=== PATIENT | male | born 1995 | race Caucasian/White ===

== ENCOUNTER → 2017-01-16 | Outpatient (CLI) | payer BC ==
--- NOTE | 2017-01-16 09:14 | Diagnostic Imaging Report ---
EXAM: CHEST PA/LAT (2 VIEW) INDICATION: SOB, L SIDED CHEST PAIN COMPARISON: Chest radiograph 10/08/2013. FINDINGS: Normal heart size and pulmonary vascularity. Lungs are well expanded. No focal pulmonary opacity, pleural effusion or pneumothorax. Osseous structures are unremarkable. No significant change. IMPRESSION: Negative chest. Dictated by: Dictated on workstation # [id number]
== END ==
LOC: RAD 08:19
PROVIDERS: ATTEND Family Medicine
DX: R06.02 Shortness of breath (principal); R07.9 Chest pain, unspecified
CPT/HCPCS: 71020

== ENCOUNTER → 2018-01-10 | Outpatient (CLI) | payer BC ==
[~2018-01-10] MED LIST: OMEP20CA12; SUCR1TAB
[2018-01-10 20:20] LABS: BASOPHILS % (AUTO) 1 % (0-10); EOSINOPHILS # (AUTO) 0.2 10^3/uL (0.0-0.3); EOSINOPHILS % (AUTO) 3 % (0-10); HEMATOCRIT 41 % (40-54); HEMOGLOBIN 15.3 G/DL (13.3-17.7); LYMPHOCYTES # (AUTO) 2.9 X 10^3 (1.0-4.0); LYMPHOCYTES % (AUTO) 44 % (12-44); MEAN CORPUSCULAR HEMOGLOBIN 33 PG (25-34); MEAN CORPUSCULAR HGB CONC 37 G/DL (32-36); MEAN CORPUSCULAR VOLUME 87 FL (80-99); MONOCYTES # (AUTO) 0.6 X 10^3 (0.0-1.0); MONOCYTES % (AUTO) 10 % (0-12); NEUTROPHILS # (AUTO) 2.8 X 10^3 (1.8-7.8); NEUTROPHILS % (AUTO) 43 % (42-75); PLATELET COUNT 236 10^3/uL (130-400); RED BLOOD COUNT 4.71 10^6/uL (4.35-5.85); RED CELL DISTRIBUTION WIDTH 12.3 % (10.0-14.5); WHITE BLOOD COUNT 6.5 10^3/uL (4.3-11.0)
[2018-01-10 20:37] LABS: ALANINE AMINOTRANSFERASE 18 U/L (0-55); ALBUMIN 4.4 GM/DL (3.2-4.5); ALKALINE PHOSPHATASE 53 U/L (40-136); AMYLASE 42 U/L (25-125); BUN/CREATININE RATIO 10; CALCIUM 9.5 MG/DL (8.5-10.1); CARBON DIOXIDE 29 MMOL/L (21-32); CHLORIDE 105 MMOL/L (98-107); CREATININE SERUM 1.02 MG/DL (0.60-1.30); GFR ESTIMATED > 60; GLUCOSE 97 MG/DL (70-105); LIPASE 12 U/L (8-78); POTASSIUM 3.8 MMOL/L (3.6-5.0); SODIUM 139 MMOL/L (135-145); TOTAL PROTEIN 6.4 GM/DL (6.4-8.2)
== END ==
LOC: LAB 20:00
PROVIDERS: ATTEND Nurse Practitioner Family
DX: R10.13 Epigastric pain (principal); R10.11 Right upper quadrant pain; R10.12 Left upper quadrant pain; R10.31 Right lower quadrant pain
CPT/HCPCS: 36415; 80053; 82150; 83690; 85025; 86141

== ENCOUNTER 2018-01-17 18:02 | Emergency (ER) | payer BC ==
[~2018-01-17] VITALS: Ht 175.3 cm; Wt 63.5 kg
[2018-01-17 18:45] LABS: BASOPHILS # (AUTO) 0.1 10^3/uL (0.0-0.1); BASOPHILS % (AUTO) 1 % (0-10); EOSINOPHILS # (AUTO) 0.1 10^3/uL (0.0-0.3); EOSINOPHILS % (AUTO) 2 % (0-10); HEMATOCRIT 42 % (40-54); HEMOGLOBIN 15.4 G/DL (13.3-17.7); LYMPHOCYTES # (AUTO) 1.9 X 10^3 (1.0-4.0); LYMPHOCYTES % (AUTO) 40 % (12-44); MEAN CORPUSCULAR HEMOGLOBIN 31 PG (25-34); MEAN CORPUSCULAR HGB CONC 37 G/DL (32-36); MEAN CORPUSCULAR VOLUME 85 FL (80-99); MEAN PLATELET VOLUME 10.1 FL (7.4-10.4); MONOCYTES # (AUTO) 0.6 X 10^3 (0.0-1.0); MONOCYTES % (AUTO) 12 % (0-12); NEUTROPHILS # (AUTO) 2.2 X 10^3 (1.8-7.8); NEUTROPHILS % (AUTO) 44 % (42-75); PLATELET COUNT 251 10^3/uL (130-400); RED BLOOD COUNT 4.95 10^6/uL (4.35-5.85); RED CELL DISTRIBUTION WIDTH 12.3 % (10.0-14.5); WHITE BLOOD COUNT 4.9 10^3/uL (4.3-11.0)
[2018-01-17] MEDS ORDERED: ONDANSETRON 4 MG/2 ML (SDV) Z0FRAN IVP ONE (18:45)
[2018-01-17] MEDS ORDERED: NS 100 ML (IVPB) BAG IV ONE (18:45)
[2018-01-17] MEDS ORDERED: IOHEXOL 350 MG/ML 100 ML (OMNIPAQUE 350) VIAL IV ONE (18:45)
[2018-01-17] MEDS ORDERED: NS IV 1000 ML 1,000 ML IV SCH (18:45)
--- NOTE | 2018-01-17 18:46 | ED Abdominal Pain ---
General Chief Complaint: Abdominal/GI Problems Stated Complaint: RLQ PAIN, CHILLS Source of Information: Patient Exam Limitations: No Limitations History of Present Illness Date Seen by Provider: Jan 17, 2018 Time Seen by Provider: 18:35 Initial Comments Patient is a 22-year-old male who presents to the emergency room with complaints of fevers, chills, nausea, right lower quadrant abdominal pain. He reports that his pain became worse throughout the day but has subsided a little now and this has a generalized ache in his abdomen. He reports that he's recently been treated for a stomach ulcer and is currently on Carafate and Pepcid. He reports this pain is different from the pain he has had in the past. Timing/Duration: 12 Hours Severity/Quality: Dull Location: RLQ Radiation: No Radiation Associated Symptoms: Fever/Chills, Nausea/Vomiting Allergies and Home Medications Allergies Coded Allergies: No Known Drug Allergies (Unverified , 01/17/18) Patient Home Medication List Home Medication List Reviewed: Yes Review of Systems Constitutional: see HPI, chills, fever Gastrointestinal: See HPI, Abdominal Pain, Constipated, Nausea; Denies Vomiting Genitourinary: No Symptoms Reported All Other Systems Reviewed Negative Unless Noted: Yes Past Birpqif-Qlchxx-Opemqg Hx Past Med/Social Hx: Reviewed Nursing Past Med/Soc Hx Patient Social History Recent Foreign Travel: No Contact w/Someone Who Travel: No Family Medical History Reviewed Nursing Family Hx Physical Exam Vital Signs Vital Signs - First Documented 01/17/18 18:30 Temp 97.1 Pulse 68 Resp 20 B/P (MAP) 141/93 (109) Pulse Ox 99 Capillary Refill : Height/Weight/BMI Height: '" Weight: lbs. oz. kg; BMI Method: General Appearance: WD/WN, no apparent distress Respiratory: chest non-tender, lungs clear, normal breath sounds, no respiratory distress, no accessory muscle use Cardiovascular: no edema, no gallop, no JVD, no murmur Gastrointestinal: normal bowel sounds, soft, no organomegaly, no pulsatile mass , tenderness (right lower quadrant tenderness. Negative Jenaro negative psoas, negative obturator sign.) Neurologic/Psychiatric: alert, oriented x 3 Skin: normal color, warm/dry Progress/Results/Core Measures Results/Orders Lab Results Laboratory Tests Test 01/17/18 18:35 01/17/18 19:46 Range/Units White Blood Count 4.9 4.3-11.0 10^3/uL Red Blood Count 4.95 4.35-5.85 10^6/uL Hemoglobin 15.4 13.3-17.7 G/DL Hematocrit 42 40-54 % Mean Corpuscular Volume 85 80-99 FL Mean Corpuscular Hemoglobin 31 25-34 PG Mean Corpuscular Hemoglobin Concent 37 H 32-36 G/DL Red Cell Distribution Width 12.3 10.0-14.5 % Platelet Count 251 130-400 10^3/uL Mean Platelet Volume 10.1 7.4-10.4 FL Neutrophils (%) (Auto) 44 42-75 % Lymphocytes (%) (Auto) 40 12-44 % Monocytes (%) (Auto) 12 0-12 % Eosinophils (%) (Auto) 2 0-10 % Basophils (%) (Auto) 1 0-10 % Neutrophils # (Auto) 2.2 1.8-7.8 X 10^3 Lymphocytes # (Auto) 1.9 1.0-4.0 X 10^3 Monocytes # (Auto) 0.6 0.0-1.0 X 10^3 Eosinophils # (Auto) 0.1 0.0-0.3 10^3/uL Basophils # (Auto) 0.1 0.0-0.1 10^3/uL Sodium Level 142 135-145 MMOL/L Potassium Level 3.5 L 3.6-5.0 MMOL/L Chloride Level 107 98-107 MMOL/L Carbon Dioxide Level 25 21-32 MMOL/L Anion Gap 10 5-14 MMOL/L Blood Urea Nitrogen 11 7-18 MG/DL Creatinine 1.05 0.60-1.30 MG/DL Estimat Glomerular Filtration Rate > 60 BUN/Creatinine Ratio 10 Glucose Level 114 H 70-105 MG/DL Calcium Level 9.6 8.5-10.1 MG/DL Total Bilirubin 0.8 0.1-1.0 MG/DL Aspartate Amino Transf (AST/SGOT) 21 5-34 U/L Alanine Aminotransferase (ALT/SGPT) 22 0-55 U/L Alkaline Phosphatase 60 40-136 U/L Total Protein 6.6 6.4-8.2 GM/DL Albumin 4.6 H 3.2-4.5 GM/DL Amylase Level 45 25-125 U/L Lipase 16 8-78 U/L Urine Color YELLOW Urine Clarity SLIGHTLY CLOUDY Urine pH 8 5-9 Urine Specific [place] 1.010 L 1.016-1.022 Urine Protein NEGATIVE NEGATIVE Urine Glucose (UA) NEGATIVE NEGATIVE Urine Ketones NEGATIVE NEGATIVE Urine Nitrite NEGATIVE NEGATIVE Urine Bilirubin NEGATIVE NEGATIVE Urine Urobilinogen NORMAL NORMAL MG/DL Urine Leukocyte Esterase NEGATIVE NEGATIVE Urine RBC (Auto) NEGATIVE NEGATIVE Urine RBC NONE /HPF Urine WBC RARE /HPF Urine Crystals PRESENT H /LPF Urine Amorphous Sediment LARGE GERMAN PHOSPHATE H /LPF Urine Bacteria NEGATIVE /HPF Urine Casts NONE /LPF Urine Mucus SMALL H /LPF Urine Culture Indicated NO My Orders Orders - JAMAR GREGORY Comprehensive Metabolic Panel (01/17/18 18:33) Lipase (01/17/18 18:33) Amylase (01/17/18 18:33) Ua Culture If Indicated (01/17/18 18:33) Saline Lock/Iv-Start (01/17/18 18:33) Cbc With Automated Diff (01/17/18 18:33) Ondansetron Injection (Zofran Injectio (01/17/18 18:45) Ns Iv 1000 Ml (Sodium Chloride 0.9%) (01/17/18 18:45) Iohexol Injection (Omnipaque 350 Mg/Ml 1 (01/17/18 18:45) Ns (Ivpb) (Sodium Chloride 0.9% Ivpb Bag (01/17/18 18:45) Ct Abd/Pelv W (Appendicitis) (01/17/18 18:46) Medications Given in ED Current Medications Medications Dose Ordered Sig/Miki Route Start Time Stop Time Status Last Admin Dose Admin Iohexol 100 ml ONCE ONCE IV 01/17/18 18:45 01/17/18 18:46 DC 01/17/18 18:55 100 ML Ondansetron HCl 8 mg ONCE ONCE IVP 01/17/18 18:45 01/17/18 18:46 DC 01/17/18 18:50 8 MG Sodium Chloride 100 ml ONCE ONCE IV 01/17/18 18:45 01/17/18 18:46 DC 01/17/18 18:55 100 ML Vital Signs/I&O 01/17/18 01/17/18 18:30 20:28 Temp 97.1 97.1 Pulse 68 73 Resp 20 20 B/P (MAP) 141/93 (109) 127/93 (109) Pulse Ox 99 99 Progress Progress Note : Progress Note The patient's CT findings and lab work was discussed with the patient. He agrees for plans of discharge, uses stool softeners, return precautions, and close follow-up with Dr. Barbosa. Departure Impression Primary Impression: Nausea alone Additional Impression: Constipation Disposition: HOME, SELF-CARE Condition: Stable/Unchanged Departure-Patient Inst. Decision time for Depature: 19:41 Referrals: LUKAS VÁSQUEZ MD (PCP/Family) Primary Care Physician Patient Instructions: Constipation, Adult (DC) Add. Discharge Instructions: Take your medication as previously prescribed. You may take stool softeners daily as needed for the constipation. Docusate Sodium and Colace are generic brand names. Increase her fluid intake. Follow-up with Dr. Wren within 1 week for recheck. Return back to the emergency room for worsening symptoms, or any other concerns as needed. All discharge instructions reviewed with patient and/ or family. Voiced understanding. JAMAR GREGORY Jan 17, 2018 18:46
[2018-01-17 19:05] LABS: ALANINE AMINOTRANSFERASE 22 U/L (0-55); ALBUMIN 4.6 GM/DL (3.2-4.5); ALKALINE PHOSPHATASE 60 U/L (40-136); AMYLASE 45 U/L (25-125); BILIRUBIN,TOTAL 0.8 MG/DL (0.1-1.0); BUN/CREATININE RATIO 10; CALCIUM 9.6 MG/DL (8.5-10.1); CARBON DIOXIDE 25 MMOL/L (21-32); CHLORIDE 107 MMOL/L (98-107); CREATININE SERUM 1.05 MG/DL (0.60-1.30); GFR ESTIMATED > 60; GLUCOSE 114 MG/DL (70-105); LIPASE 16 U/L (8-78); POTASSIUM 3.5 MMOL/L (3.6-5.0); SODIUM 142 MMOL/L (135-145); TOTAL PROTEIN 6.6 GM/DL (6.4-8.2)
[2018-01-17] MEDS ORDERED: OMEP20CA12 (19:08)
[2018-01-17] MEDS ORDERED: SUCR1TAB (19:08)
--- NOTE | 2018-01-17 19:14 | Diagnostic Imaging Report ---
PROCEDURE: CT abdomen and pelvis with contrast, rule out appendicitis. TECHNIQUE: Multiple contiguous axial images were obtained through the abdomen and pelvis after the administration of intravenous contrast. INDICATION: Right lower quadrant abdominal pain. COMPARISON: None. FINDINGS: Lung bases are clear. The gallbladder, solid organs, vascular structures, and small bowel are normal. There is mild constipation throughout the colon without obstruction or ileus. The appendix is normal. There is no free air or free fluid. There is no lymphadenopathy. Distal ureters and urinary bladder are normal. The prostate is unremarkable. The osseous structures are age appropriate. IMPRESSION: 1. Normal appendix. 2. Mild constipation without obstruction or ileus. Dictated by: Dictated on workstation # [id number]
[2018-01-17 20:01] LABS: BILIRUBIN,URINE NEGATIVE (NEGATIVE); CLARITY,URINE SLIGHTLY CLOUDY; COLOR,URINE YELLOW; GLUCOSE, URINE (UA) NEGATIVE (NEGATIVE); KETONES,URINE NEGATIVE (NEGATIVE); LEUKOCYTE ESTERASE ,URINE NEGATIVE (NEGATIVE); NITRITE,URINE NEGATIVE (NEGATIVE); PH,URINE 8 (5-9); PROTEIN,URINE NEGATIVE (NEGATIVE); UROBILINOGEN,URINE NORMAL (NORMAL)
[2018-01-17 20:10] LABS: WBC,URINE RARE /HPF
[2018-01-17 20:11] LABS: AMORPHOUS SEDIMENT,UR LARGE AMOR PHOSPHATE /LPF; BACTERIA,URINE NEGATIVE /HPF
[2018-01-17 20:28] VITALS: BP 127/93
== END 2018-01-17 20:28 | disposition home or self-care (01) ==
LOC: EDUNIT# 18:02 → ER 18:04
DX: K59.00 Constipation, unspecified (principal)
CPT/HCPCS: 36415; 74177; 80053; 81000; 82150; 83690; 85025; 96361; 96374

== ENCOUNTER → 2018-04-19 | Outpatient (CLI) | payer BC ==
[~2018-04-19] MED LIST changes: +BARIUM SUSPENSION 105% (LIQUID POLIBAR PLUS) 240 ML/DOSE PO ONE; +BARIUM SUSPENSION 60% (LIQUID EZ PAQUE) 240 ML DOSE PO ONE
--- NOTE | 2018-04-19 13:56 | Diagnostic Imaging Report ---
INDICATION: Dyspepsia. Patient ingested effervescent crystals as well as thin and thick barium and imaging of the esophagus, stomach and proximal small bowel was performed. One minute and 17 seconds of fluoroscopy was utilized. FINDINGS: Preliminary radiograph is unremarkable. The esophagus has a smooth contour. No mass or stricture is identified. No gastroesophageal reflux was demonstrated. No hiatal hernia is detected. The stomach has a normal configuration. The duodenal bulb is without deformity. The visualized proximal small bowel loops are unremarkable. IMPRESSION: Unremarkable upper GI. Dictated by: Dictated on workstation # [id number]
== END ==
LOC: RAD 10:37
PROVIDERS: ATTEND Family Medicine
DX: R10.13 Epigastric pain (principal)
CPT/HCPCS: 74241